=== PATIENT | male | born 1985 | race African-American/Black ===

== ENCOUNTER 2018-11-08 05:58 | Emergency (ER) | payer OTHER ==
[~2018-11-08] VITALS: Ht 180.3 cm; Wt 81.7 kg
[2018-11-08 06:02] VITALS: BP 130/93
[2018-11-08 06:48] LABS: ABSOLUTE BASOPHILS 0.1 thou/uL (0.0-0.2); ABSOLUTE EOSINOPHILS 0.1 thou/uL (0.0-0.7); ABSOLUTE LYMPHOCYTES 2.9 thou/uL (0.8-5.3); ABSOLUTE MONOCYTES 0.7 thou/uL (0.0-1.2); ABSOLUTE NEUTROPHILS 2.9 thou/uL (1.6-8.1); BASOPHILS 0.8 %; EOSINOPHILS 1.3 %; HEMATOCRIT 47.6 % (42.0-52.0); HEMOGLOBIN 16.1 gm/dL (14.0-18.0); LYMPHOCYTES 43.6 %; MCH 30.2 pg (26.0-34.0); MCHC 33.8 g/dL (28.0-37.0); MCV 89.5 fL (80.0-100.0); MPV 7.9 fl. (7.2-11.1); NUCLEATED RBCS 0 /100WBC; PLATELET COUNT* 180 thou/uL (150-400); POLYS 44.3 %; RBC 5.31 mil/uL (4.50-6.00); WBC 6.6 thou/uL (4.0-11.0)
[2018-11-08 06:56] LABS: CALCIUM 8.5 mg/dL (8.5-10.1); CREATININE 1.1 mg/dL (0.6-1.3); POTASSIUM 3.1 mmol/L (3.5-5.1)
[2018-11-08 07:02] LABS: TOTAL BILIRUBIN 0.4 mg/dL (<0.1-1.0); TOTAL PROTEIN 7.5 g/dL (6.4-8.2)
--- NOTE | 2018-11-08 07:45 | NUR ---
SEVERAL TIMES SINCE SHIFT CHANGE, PT HAS COME OUT AND TRIED PACING THROUGH THE HALLWAY, CUSSING, YELLING, DEMANDING MORE PAIN MEDICATIONS. SECURITY HAD TO BE CALLED TWICE FOR HIS BEHAVIOR. IT WAS SUGGESTED TO PUT HIS FLUIDS UP ON A POLE SINCE HE WAS PACING, SO THE FLUIDS COULD CONTINUE TO GO IN. AT THIS POINT PT DECIDED HE WANTED TO LEAVE AMA. IV WAS DISCONTINUED. HE VERY BELIGERENT AND YELLING. 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 PT WAS ESCORTED OUT BY SECURITY.
[2018-11-08 08:16] VITALS: BP 130/93
== END 2018-11-08 08:16 | disposition left against medical advice (07) ==
LOC: M.ERS 05:58 → M.TBA-ER 08:22
PROVIDERS: Personal Emergency Response Attendant
DX: R10.84 Generalized abdominal pain (principal); K92.0 Hematemesis

== ENCOUNTER → 2020-09-18 | Outpatient (CLI) | payer OTHER ==
[2020-09-18 11:05] LABS: URINE BILIRUBIN NEGATIVE (Negative); URINE BLOOD TRACE (Negative); URINE CLARITY CLEAR; URINE COLOR YELLOW; URINE GLUCOSE-RANDOM NEGATIVE (Negative); URINE KETONES NEGATIVE (Negative); URINE LEUKOCYTES NEGATIVE (Negative); URINE NITRITE NEGATIVE (Negative); URINE PROTEIN NEGATIVE (Negative); URINE SPECIFIC GRAVITY 1.025 (1.005-1.030); URINE UROBILINOGEN 0.2 E.U./dl (0.2-1.0)
[2020-09-18 11:27] LABS: ALBUMIN 4.1 g/dL (3.4-5.0); CALCIUM 8.7 mg/dL (8.5-10.1); POTASSIUM 4.1 mmol/L (3.5-5.1); TOTAL BILIRUBIN 0.3 mg/dL (<0.1-1.0); TOTAL PROTEIN 7.6 g/dL (6.4-8.2)
--- NOTE | 2020-09-27 12:57 | PF ---
[address] [address] PULMONARY FUNCTION REPORT Name: SANDY DARNELL Room: [facility]#: [id number] Admission: 09/18/20 Attend Phys: Stanley Batres MD Discharge: Date of : 83 Report #: [id number] THIS REPORT FOR: //name// CC: Stanley Batres [facility]PCP DATE OF SERVICE: 09/18/2020 Only a spirometry was performed. The FEV1/FVC ratio is normal at 85% with an FVC decreased to 69% and FEV1 decreased to 73%. The [id number] is normal at 80%. After the administration of a bronchodilator, there is a 17% increase in the FVC to a post-bronchodilator FVC of 4.47 liters. The FEV1 also increases by 18% to a post-bronchodilator FEV1 of 3.84 liters. IMPRESSION: Moderate obstruction with evidence of reversibility. <ELECTRONICALLY SIGNED> By: Derik Contreras MD 09/27/20 [id number] Contreras MD /nt
== END ==
LOC: M.LAB 09-06 11:43
PROVIDERS: ATTEND Orthopaedic Surgery
DX: J98.4 Other disorders of lung (principal); K52.9 Noninfective gastroenteritis and colitis, unspecified